=== PATIENT | female | born 1975 | race Caucasian/White ===

== ENCOUNTER 2020-11-17 11:09 | Emergency (ER) | payer SELFPAY ==
--- NOTE | 2020-11-17 11:16 | EDM.PDOC ---
ED HPI GENERAL MEDICAL PROBLEM - General Chief Complaint: Back Pain or Injury Stated Complaint: BACK AND FOOT PAIN Time Seen by Provider: 11/17/20 11:10 Source of Information: Reports: Patient History Limitations: Reports: No Limitations - History of Present Illness INITIAL COMMENTS - FREE TEXT/NARRATIVE: HISTORY AND PHYSICAL: History of present illness: Patient is a 45-year-old female who presents to the ED today with complaints of back pain. She states 2 weeks ago she was standing on a stool when it swiveled and she fell off landing on her left buttock onto the stool subsequently falling forward to the floor onto her face and hitting her left cheekbone. Upon exam she is sitting style in the chair and is able to freely move all her extremities. She also complains of pain in the bottom of her feet/her heels bilaterally. She denies her feet hitting the floor when she fell. Patient describes the pain as a sharp burning that radiates from her glutes down to her feet. She states there is a burning sensation upon palpation of her lower extremities. Patient denies any fever, chills, headache, change in vision, syncope or near syncope. Denies any chest pain, shortness of breath or cough. Denies any abdominal pain, nausea, vomiting, diarrhea, constipation or dysuria. Has not noted any blood in urine or stool. Patient has been eating and drinking appropriately. Review of systems: As per history of present illness and below otherwise all systems reviewed and negative. Past medical history: As per history of present illness and as reviewed below otherwise noncontributory. Surgical history: As per history of present illness and as reviewed below otherwise noncontributory. Social history: See social history for further information Family history: As per history of present illness and as reviewed below otherwise noncontributory. Physical exam: General: Well developed and well nourished. Alert and orientated x 3. Nontoxic in appearance and in no acute distress. Vital signs are stable and have been reviewed by me. Nursing notes were reviewed. HEENT: Atraumatic, normocephalic, pupils equal and reactive bilaterally, negative for conjunctival pallor or scleral icterus, mucous membranes moist, TMs normal bilaterally, throat clear, neck supple, nontender, trachea midline. No drooling or trismus noted. No meningeal signs. No hot potato voice noted. Lungs: Clear to auscultation bilaterally. No wheezes, rales, or rhonchi. Chest nontender. Normal work of breathing, no accessory muscles used. Heart: S1S2, regular rate and rhythm without overt murmur, gallops, or rubs. No JVD. No peripheral edema Abdomen: Soft, nondistended, nontender. Normoactive bowel sounds. Negative for masses or costovertebral tenderness. Pelvis: Stable nontender. Genitourinary/Rectal: Deferred. C-spine/Back: Sacral tenderness upon palpation. No crepitus, step-offs or obvious deformities. Patient is ambulatory into the emergency room without difficulty or deficit. Able to walk on toes, unable to walk on heels due to pain. Denies any urinary or fecal incontinence. Denies any numbness, tingling or saddle paresthesia. No concerns of serious infection, fracture or cord compression, or cauda equina syndrome. Deep tendon reflexes brisk bilaterally. Skin: Intact, warm, dry. No lesions or rashes noted. Hematologic: No petechiae or purpra. Mucosa appropriate color and normal nail bed color and refill. Extremities: Atraumatic, moves all extremities per self without difficulty or deficits, negative for cords or calf pain. Neurovascular unremarkable. Neuro: Awake, alert, oriented. Cranial nerves II through XII unremarkable. Cerebellum unremarkable. Motor and sensory unremarkable throughout. Exam nonfocal. Psychiatric: Mood and affect are appropriate. Normal thought process. Answering questions appropriately. Notes: *This patient was seen and evaluated during the 2019 SARS-CoV-2 novel coronavirus pandemic period. Community viral transmission is ongoing at time of this encounter and the emergency department is operating under pandemic response procedures. X-ray anatomic alignment at the hip with no fracture, bone lesion or avascular necrosis. No degenerative or inflammatory change. Mild osteoarthritis sacroiliac joints. Escaped fallopian tube clip in the left abdomen and normally positioned right-sided clip over the mid right sacral margin. Five lumbar vertebra and anatomic alignment. Moderate facet arthrosis L4-5 and L5-S1. Disk heights appear maintained. Cholecystectomy clips. Normal bowel gas pattern. Moderate amount of dense formed stool in the visualized colon. Upon going into the patient's room she is sitting in the chair with her legs wrapped up underneath her, hunched over and playing on her phone. She freely moves all her extremities. Shes states she feels much betterI have talked with the patient about today's findings, in addition to providing specific details for plan of care. I encouraged her to follow-up with the primary care provider if she continues to have back pain as this may warrant further imaging. Reassessment at the time of disposition demonstrates that the patient is in no acute distress. The patient is stable for discharge, counseling was provided and we discussed in great detail signs and symptoms that would prompt them to return to the Emergency Department. Medication, follow up and supportive care measures were reviewed and discussed. Voices understanding and is agreeable to plan of care. Denies any further questions or concerns at this time. Diagnostics: Lumbar spine x-ray, hip/pelvis Therapeutics: Norflex Prescription: Flexeril Impression: Lumbar back pain with sciatica Plan: 1. The medication you received today does cause drowsiness, so do not drive for the remaining day 2. When resting please lay on a flat firm surface. Limit your immobility to prevent muscle stiffness. Get up to ambulate/move around/gentle stretching multiple times throughout the day. May alternate heat and ice to the painful areas 3. Tylenol as needed for back pain. Otherwise take the prescribed Flexeril and diclofenac as directed. Diclofenac is an anti-inflammatory so do not take any a dditional NSAIDs with this medication, such as ibuprofen or Aleve. Flexeril as a muscle relaxant, this medication may cause drowsiness a do not take it will driving her needing to be functioning outside of the house. 4. Please follow-up with your primary care provider as we discussed. Return to the ED as needed and as discussed. Definitive disposition and diagnosis as appropriate pending reevaluation and review of above. back Pain Score (Numeric/FACES): 10 - Related Data Allergies Allergy/AdvReac Type Severity Reaction Status Date / Time morphine Allergy Other Verified 11/17/20 11:46 Sulfa (Sulfonamide Allergy Itching Verified 11/17/20 11:46 Antibiotics) Home Meds: Home Meds Escitalopram Oxalate [Lexapro] 10 mg PO DAILY 11/17/20 [History] Phentermine HCl 37.5 mg PO DAILY 11/17/20 [History] modafiniL [Modafinil] 200 mg pe PO DAILY 11/17/20 [History] ED ROS GENERAL - Review of Systems Review Of Systems: Comprehensive ROS is negative, except as noted in HPI. ED EXAM,LOWER BACK PAIN/INJURY - Physical Exam Exam: See Below (See dictation) Course - Vital Signs Last Recorded V/S: Last Vital Signs Temp 97.4 F 11/17/20 11:23 Pulse 87 11/17/20 11:23 Resp 17 11/17/20 11:23 BP 149/84 H 11/17/20 11:23 Pulse Ox 98 11/17/20 11:23 - Orders/Labs/Meds Meds: Medications Discontinued Medications Generic Name Dose Route Start Last Admin Trade Name Chica PRN Reason Stop Dose Admin Orphenadrine Citrate 60 mg 11/17/20 11:42 11/17/20 12:02 Norflex IM 11/17/20 11:43 60 mg ONETIME ONE Administration Departure - Departure Time of Disposition: 12:55 Disposition: Home, Self-Care 01 Clinical Impression: Back pain of lumbar region with sciatica - Discharge Information Instructions: Sciatica, [id number] Referrals: PCP,Not In Area [Primary Care Provider] - Forms: ED Department Discharge Additional Instructions: The following information is given to patients seen in the emergency department who are being discharged to home. This information is to outline your options for follow-up care. We provide all patients seen in our emergency department with a follow-up referral. The need for follow-up, as well as the timing and circumstances, are variable depending upon the specifics of your emergency department visit. If you don't have a primary care physician on staff, we will provide you with a referral. We always advise you to contact your personal physician following an emergency department visit to inform them of the circumstance of the visit and for follow-up with them and/or the need for any referrals to a consulting specialist. The emergency department will also refer you to a specialist when appropriate. This referral assures that you have the opportunity for follow-up care with a specialist. All of these measure are taken in an effort to provide you with optimal care, which includes your follow-up. Under all circumstances we always encourage you to contact your private physician who remains a resource for coordinating your care. When calling for follow-up care, please make the office aware that this follow-up is from your recent emergency room visit. If for any reason you are refused follow-up, please contact the [facility] Emergency Department at and asked to speak to the emergency department charge nurse. [facility] [address] [place] [address] [facility] [address] [place] [address] Thank you for choosing the [facility] emergency department in [place] for your medical needs today. It was a pleasure caring for you. Today you were seen in the emergency department for back pain. 1. The medication you received today does cause drowsiness, so do not drive for the remaining day 2. When resting please lay on a flat firm surface. Limit your immobility to prevent muscle stiffness. Get up to ambulate/move around/gentle stretching multiple times throughout the day. May alternate heat and ice to the painful areas 3. Tylenol as needed for back pain. Otherwise take the prescribed Flexeril and diclofenac as directed. Diclofenac is an anti-inflammatory so do not take any additional NSAIDs with this medication, such as ibuprofen or Aleve. Flexeril as a muscle relaxant, this medication may cause drowsiness a do not take it will driving her needing to be functioning outside of the house. 4. Please follow-up with your primary care provider as we discussed. Return to the ED as needed and as discussed. Sepsis Event Note (ED) - Focused Exam Vital Signs: Vital Signs Temp Pulse Resp BP Pulse Ox 11/17/20 11:23 97.4 F 87 17 149/84 H 98
[2020-11-17] MEDS ORDERED: Orphenadrine 60 MG/2 ML Inj IM ONE (11:42)
--- NOTE | 2020-11-17 12:48 | CR ---
INDICATION: Pain after remote fall. TECHNIQUE: Three views pelvis and left hip. IMPRESSION: Anatomic alignment at the hip with no fracture, bone lesion or avascular necrosis. No degenerative or inflammatory change. Mild osteoarthritis sacroiliac joints. Escaped fallopian tube clip in the left abdomen and normally positioned right-sided clip over the mid right sacral margin. Dictated by Osorio Bedoya MD @ Nov 17 2020 12:46PM Signed by Dr. Osorio Bedoya @ Nov 17 2020 12:46PM
--- NOTE | 2020-11-17 12:50 | CR ---
INDICATION: Fall. Pain. TECHNIQUE: Three views lumbar spine. IMPRESSION: Five lumbar vertebra and anatomic alignment. Moderate facet arthrosis L4-5 and L5-S1. Disk heights appear maintained. Cholecystectomy clips. Normal bowel gas pattern. Moderate amount of dense formed stool in the visualized colon. Dictated by Osorio Bedoya MD @ Nov 17 2020 12:47PM Signed by Dr. Osorio Bedoya @ Nov 17 2020 12:48PM
== END 2020-11-17 13:20 | disposition home or self-care (01) ==
LOC: MW.ED 11:09
DX: M54.42 Lumbago with sciatica, left side (principal); Z88.5 Allergy status to narcotic agent; Z88.2 Allergy status to sulfonamides
CPT/HCPCS: 72100; 73502; 96372; 99283; J2360